=== PATIENT | male | born 1930 | race Caucasian/White ===

== ENCOUNTER 2018-10-06 17:16 | Inpatient (IN) | payer OTHER, MEDICARE ==
[~2018-10-06] VITALS: Ht 165.1 cm; Wt 73.2 kg
[2018-10-06] VITALS (7 sets, daily range): BP systolic 126–163; BP diastolic 50–70
--- NOTE | ~2018-10-06 | EKG ---
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
[~2018-10-06 17:16] MED LIST: ADALAT CC90 MG PO; ASPIRIN81 M1 PO; ATORVASTATIN CA40 M1 PO; CARVEDILOL12.5 MG PO; GLUCOSAMINE1000 MG PO; HYDROCHLOROTHIA25 M1 PO; IMDUR SA30 MG PO; LANTUS100 U/ML SC; LASIX20 MG PO; LIPITOR80 MG PO; LISINOPRIL40 MG PO; METFORMIN500 MG PO; NIFEDIPINE90 MG PO; NITROSTAT0.4 MG SL; PLAVIX75 M1 PO; SAW PALMETTO80 M1 PO; SYNTHROID25 MCG PO; TEMOVATE0.05% T; TENORMIN25 M1 PO; ZESTRIL20 MG PO
[2018-10-06 17:58] LABS: BASO # 0.1 10*3/uL (0.0-0.1); BASO % 0.6 % (0.0-1.0); EOS # 0.2 10*3/uL (0.0-0.4); EOS % 1.7 % (1.0-4.0); HEMATOCRIT 33.5 % (42.0-52.0); LYMPH # 1.3 10*3/uL (1.3-4.4); LYMPH % 12.9 % (27.0-41.0); MEAN CELL VOLUME 91.5 fl (80.0-94.0); MEAN CORPUSCULAR HGB 30.1 pg (27.0-31.0); MEAN CORPUSCULAR HGB CONC 32.8 g/dl (33.0-37.0); MEAN PLATELET VOLUME 11.9 fl (9.6-12.3); MONO # 0.8 10*3/uL (0.1-1.0); MONO % 7.4 % (3.0-9.0); NEUT # 7.9 10*3/uL (2.3-7.9); NEUT % 77.1 % (47.0-73.0); PLATELET COUNT AUTOMATED 249 10*3/uL (130-400); RED BLOOD COUNT 3.66 10*6/uL (4.50-5.90); RED CELL DISTRI WIDTH 14.2 % (0-14.5); WHITE BLOOD COUNT 10.2 10*3/uL (4.8-10.8)
[2018-10-06 18:33] LABS: ACT PARTIAL THROMBO TIME 26.3 SECONDS (20.8-31.5); INTERNATIONAL NORM RATIO 1.1 (2.0-3.5)
[2018-10-06 18:50] LABS: ALBUMIN 3.4 gm/dl (3.1-4.5); CREATININE 1.69 mg/dL (0.70-1.30); POTASSIUM 5.3 mmol/L (3.5-5.1); TOTAL PROTEIN 7.1 gm/dL (6.4-8.2)
[2018-10-06 18:51] LABS: TROPONIN I 0.027 ng/ml (<0.045)
[2018-10-06] MEDS ORDERED: LASIX20 MG PO (21:01)
[2018-10-06] MEDS ORDERED: AMLODIPINE BESY10 MG PO (21:02)
[2018-10-06] MEDS ORDERED: LANTUS SOL100 UNIT/1 SC (21:03)
[2018-10-07 06:34] LABS: BASO # 0.1 10*3/uL (0.0-0.1); BASO % 0.7 % (0.0-1.0); EOS # 0.2 10*3/uL (0.0-0.4); EOS % 2.6 % (1.0-4.0); HEMATOCRIT 30.8 % (42.0-52.0); HEMOGLOBIN 9.8 g/dl (14.0-18.0); LYMPH # 1.5 10*3/uL (1.3-4.4); LYMPH % 20.4 % (27.0-41.0); MEAN CELL VOLUME 91.7 fl (80.0-94.0); MEAN CORPUSCULAR HGB 29.2 pg (27.0-31.0); MEAN CORPUSCULAR HGB CONC 31.8 g/dl (33.0-37.0); MEAN PLATELET VOLUME 11.6 fl (9.6-12.3); MONO # 0.7 10*3/uL (0.1-1.0); MONO % 9.9 % (3.0-9.0); NEUT # 4.8 10*3/uL (2.3-7.9); NEUT % 66.3 % (47.0-73.0); PLATELET COUNT AUTOMATED 188 10*3/uL (130-400); RED BLOOD COUNT 3.36 10*6/uL (4.50-5.90); RED CELL DISTRI WIDTH 14.3 % (0-14.5); WHITE BLOOD COUNT 7.2 10*3/uL (4.8-10.8)
[2018-10-07 06:46] LABS: CREATININE 1.6 mg/dL (0.70-1.30); PHOSPHOROUS 4.5 mg/dL (2.5-4.9); TOTAL PROTEIN 6.3 gm/dL (6.4-8.2)
[2018-10-07 06:53] LABS: THYROID STIM HORMONE (HS) 4.27 uIU/ml (0.358-4.75)
[2018-10-07 06:55] LABS: POTASSIUM 4.3 mmol/L (3.5-5.1)
[2018-10-07 07:45] LABS: VITAMIN D, 25-HYDROXY 29.7 ng/mL (30-100)
[2018-10-07 08:00] VITALS: BP 130/50
[2018-10-07 11:35] LABS: BILIRUBIN NEGATIVE (NEGATIVE); BLOOD 1+ (NEGATIVE); CLARITY SL CLOUDY (CLEAR); COLOR YELLOW (YELLOW); GLUCOSE NEGATIVE (NEGATIVE); KETONE NEGATIVE (NEGATIVE); LEUKO ESTERASE NEGATIVE (NEGATIVE); NITRITE NEGATIVE (NEGATIVE); UROBILINOGEN 0.2 E.U./dl (0.2-1.0)
[2018-10-07 11:45] LABS: BACTERIA TRACE; EPITHELIAL CELLS 0-2; MUCOUS 1+; RBC 16-20 rbc/hpf (0-2)
[2018-10-07 12:00] VITALS: BP 132/56
[2018-10-07 16:00] VITALS: BP 139/42
[2018-10-07 20:00] VITALS: BP 145/49
[2018-10-08] VITALS: BP 123/41
[2018-10-08 06:13] LABS: BASO # 0.1 10*3/uL (0.0-0.1); BASO % 0.9 % (0.0-1.0); EOS # 0.2 10*3/uL (0.0-0.4); EOS % 2.3 % (1.0-4.0); HEMATOCRIT 32.1 % (42.0-52.0); HEMOGLOBIN 10.2 g/dl (14.0-18.0); LYMPH # 1.5 10*3/uL (1.3-4.4); LYMPH % 22.1 % (27.0-41.0); MEAN CELL VOLUME 90.9 fl (80.0-94.0); MEAN CORPUSCULAR HGB 28.9 pg (27.0-31.0); MEAN CORPUSCULAR HGB CONC 31.8 g/dl (33.0-37.0); MONO # 0.7 10*3/uL (0.1-1.0); MONO % 9.9 % (3.0-9.0); NEUT # 4.5 10*3/uL (2.3-7.9); NEUT % 64.7 % (47.0-73.0); PLATELET COUNT AUTOMATED 186 10*3/uL (130-400); RED BLOOD COUNT 3.53 10*6/uL (4.50-5.90); RED CELL DISTRI WIDTH 13.9 % (0-14.5); WHITE BLOOD COUNT 6.9 10*3/uL (4.8-10.8)
[2018-10-08 06:30] LABS: CREATININE 1.62 mg/dL (0.70-1.30); PHOSPHOROUS 4.3 mg/dL (2.5-4.9); POTASSIUM 3.9 mmol/L (3.5-5.1)
[2018-10-08 08:00] VITALS: BP 150/52
[2018-10-08 12:00] VITALS: BP 124/58
[2018-10-08 16:00] VITALS: BP 140/54
[2018-10-08 20:00] VITALS: BP 138/57
[2018-10-09] VITALS: BP 132/46
[2018-10-09 06:28] LABS: BASO # 0.1 10*3/uL (0.0-0.1); BASO % 0.7 % (0.0-1.0); EOS # 0.1 10*3/uL (0.0-0.4); EOS % 1.9 % (1.0-4.0); HEMATOCRIT 32.2 % (42.0-52.0); HEMOGLOBIN 10.2 g/dl (14.0-18.0); LYMPH # 1.4 10*3/uL (1.3-4.4); LYMPH % 20.4 % (27.0-41.0); MEAN CELL VOLUME 90.7 fl (80.0-94.0); MEAN CORPUSCULAR HGB 28.7 pg (27.0-31.0); MEAN CORPUSCULAR HGB CONC 31.7 g/dl (33.0-37.0); MEAN PLATELET VOLUME 12.1 fl (9.6-12.3); MONO # 0.7 10*3/uL (0.1-1.0); NEUT # 4.6 10*3/uL (2.3-7.9); NEUT % 66.7 % (47.0-73.0); PLATELET COUNT AUTOMATED 186 10*3/uL (130-400); RED BLOOD COUNT 3.55 10*6/uL (4.50-5.90); RED CELL DISTRI WIDTH 13.8 % (0-14.5); WHITE BLOOD COUNT 6.8 10*3/uL (4.8-10.8)
[2018-10-09 07:03] LABS: CREATININE 1.59 mg/dL (0.70-1.30); POTASSIUM 3.8 mmol/L (3.5-5.1)
[2018-10-09 08:00] VITALS: BP 136/62
[2018-10-09] MEDS ORDERED: LASIX40 MG PO (10:42)
== END 2018-10-09 12:08 | disposition home health service (06) | DRG 291 ==
LOC: ED 17:16 → EDHOLD 18:55 → 4E 18:55
PROVIDERS: Emergency Medicine; Family Medicine; Internal Medicine
DX: I13.0 Hypertensive heart and chronic kidney disease with heart failure and stage 1 through stage 4 chronic kidney disease, or unspecified chronic kidney disease (principal); I50.43 Acute on chronic combined systolic (congestive) and diastolic (congestive) heart failure; E44.0 Moderate protein-calorie malnutrition; R00.1 Bradycardia, unspecified; E11.65 Type 2 diabetes mellitus with hyperglycemia; N18.3 Chronic kidney disease, stage 3 (moderate); E87.5 Hyperkalemia; I25.10 Atherosclerotic heart disease of native coronary artery without angina pectoris; E78.5 Hyperlipidemia, unspecified; E03.9 Hypothyroidism, unspecified; E11.22 Type 2 diabetes mellitus with diabetic chronic kidney disease; D64.9 Anemia, unspecified; E55.9 Vitamin D deficiency, unspecified; R74.8 Abnormal levels of other serum enzymes; R31.9 Hematuria, unspecified; Z66 Do not resuscitate; Z51.5 Encounter for palliative care; I27.22 Pulmonary hypertension due to left heart disease; Z88.1 Allergy status to other antibiotic agents; Z79.899 Other long term (current) drug therapy; Z79.82 Long term (current) use of aspirin; Z79.4 Long term (current) use of insulin; Z95.5 Presence of coronary angioplasty implant and graft; Z83.3 Family history of diabetes mellitus; Z82.5 Family history of asthma and other chronic lower respiratory diseases; Z68.26 Body mass index [BMI] 26.0-26.9, adult

== ENCOUNTER 2019-01-24 12:44 | Inpatient (IN) | payer OTHER, MEDICARE ==
[~2019-01-24] VITALS: Ht 165.1 cm; Wt 69.5 kg
--- NOTE | ~2019-01-24 | EKG ---
[place], [place] ELECTROCARDIOGRAM REPORT NAME: KENDALL ESPINOZA UNIT #: [id number] ROOM: 520 DOCTOR: KATHARINE DRAFT REPORT BIRTHDATE: [birth year] [facility] Test Date: 2019-01-24 Test Time: 12:56:12 Pat Name: KENDALL ESPINOZA Department: Room: 520 Gender: M Manager Balance: Melina Ervin : 1930 Requested By: TALIA KNAPP Order Number: [id number] Reading MD: Anita Quiñones MD Measurements Intervals [place] Rate: 62 P: 66 [place]: 147 QRS: -49 QRSD: 126 T: QT: 499 QTc: 507 Interpretive Statements Sinus rhythm Nonspecific IVCD with LAD low voltage precordial leads Nonspecific T abnormalities, lateral leads Compared to ECG 10/06/2018 18:02:08 Intraventricular conduction delay now present T-wave abnormality now present Junctional rhythm no longer present Myocardial infarct finding no longer present Electronically Signed On 01-28-2019 3:46:10 PDT by Anita Quiñones MD CM:EKGRPT:ELECTROCARDIOGRAM REPORT [id number] TALIA BONILLA DRAFT REPORT TALIA KNAPP DO
[~2019-01-24 12:44] MED LIST changes: +AMLODIPINE BESY10 MG PO; +LANTUS SOL100 UNIT/1 SC; +LASIX40 MG PO
[2019-01-24 12:46] VITALS: BP 119/56
[2019-01-24 13:04] LABS: BASO # 0.1 10*3/uL (0.0-0.1); BASO % 0.6 % (0.0-1.0); EOS # 0.2 10*3/uL (0.0-0.4); EOS % 1.7 % (1.0-4.0); HEMATOCRIT 38.3 % (42.0-52.0); HEMOGLOBIN 12.5 g/dl (14.0-18.0); LYMPH # 1.6 10*3/uL (1.3-4.4); MEAN CELL VOLUME 89.7 fl (80.0-94.0); MEAN CORPUSCULAR HGB 29.3 pg (27.0-31.0); MEAN CORPUSCULAR HGB CONC 32.6 g/dl (33.0-37.0); MEAN PLATELET VOLUME 11.9 fl (9.6-12.3); MONO # 0.8 10*3/uL (0.1-1.0); MONO % 7.8 % (3.0-9.0); NEUT # 7.2 10*3/uL (2.3-7.9); NEUT % 73.6 % (47.0-73.0); PLATELET COUNT AUTOMATED 186 10*3/uL (130-400); RED BLOOD COUNT 4.27 10*6/uL (4.50-5.90); RED CELL DISTRI WIDTH 14.3 % (0-14.5); WHITE BLOOD COUNT 9.8 10*3/uL (4.8-10.8)
[2019-01-24 13:10] VITALS: BP 137/53
[2019-01-24 13:13] LABS: ACT PARTIAL THROMBO TIME 26.1 SECONDS (20.8-31.5); INTERNATIONAL NORM RATIO 1.1 (2.0-3.5)
[2019-01-24 13:24] LABS: ALBUMIN 3.7 gm/dl (3.1-4.5); CREATININE 1.68 mg/dL (0.70-1.30); POTASSIUM 3.9 mmol/L (3.5-5.1); TROPONIN I 0.03 ng/ml (<0.045)
[2019-01-24 15:00] VITALS: BP 150/78
--- NOTE | 2019-01-24 15:00 | NUR ---
A 88, admitted to , under the services of AARON Gray DO with a diagnosis of ACUTE HEART FAILURE. Chief complaint is CHF. Patient arrived via wheel chair from ER. Monitor applied. Initial assessment completed. Vital signs taken and recorded. AARON RGAY DO notified of admission to the unit. Orders received. See assessment for past medical history, medications and allergies. Patient and/or family oriented to unit. [facility] visitation policy reviewed. Clothing/patient valuable form completed. VERONICA CARRILLO
--- NOTE | 2019-01-24 16:44 | NUR ---
CONSULT CALLED TO DR GABRIEL ANSWERING SERVICE.
[2019-01-24 20:00] VITALS: BP 143/58
--- NOTE | 2019-01-24 20:00 | NUR ---
PT MED REC UPDATED PER IN PHARMACY PAPERWORK THAT IS FAXED TO HOSPITAL. DR. LARA AWARE.
[2019-01-25] VITALS: BP 141/58
[2019-01-25 07:21] LABS: ALBUMIN 3.3 gm/dl (3.1-4.5); CREATININE 1.68 mg/dL (0.70-1.30); PHOSPHOROUS 4.4 mg/dL (2.5-4.9); POTASSIUM 3.8 mmol/L (3.5-5.1); TOTAL PROTEIN 7.1 gm/dL (6.4-8.2)
[2019-01-25 07:24] LABS: BASO # 0.1 10*3/uL (0.0-0.1); BASO % 0.9 % (0.0-1.0); EOS # 0.1 10*3/uL (0.0-0.4); EOS % 1.8 % (1.0-4.0); HEMATOCRIT 35.4 % (42.0-52.0); HEMOGLOBIN 11.5 g/dl (14.0-18.0); LYMPH # 1.7 10*3/uL (1.3-4.4); LYMPH % 25.7 % (27.0-41.0); MEAN CELL VOLUME 89.8 fl (80.0-94.0); MEAN CORPUSCULAR HGB 29.2 pg (27.0-31.0); MEAN CORPUSCULAR HGB CONC 32.5 g/dl (33.0-37.0); MEAN PLATELET VOLUME 12.8 fl (9.6-12.3); MONO # 0.7 10*3/uL (0.1-1.0); MONO % 10.1 % (3.0-9.0); NEUT # 4.1 10*3/uL (2.3-7.9); NEUT % 60.9 % (47.0-73.0); PLATELET COUNT AUTOMATED 173 10*3/uL (130-400); RED BLOOD COUNT 3.94 10*6/uL (4.50-5.90); RED CELL DISTRI WIDTH 14.1 % (0-14.5); WHITE BLOOD COUNT 6.7 10*3/uL (4.8-10.8)
[2019-01-25 07:27] LABS: FREE T4 1.34 ng/dl (0.76-1.46); THYROID STIM HORMONE (HS) 3.78 uIU/ml (0.358-4.75)
[2019-01-25 07:57] LABS: VITAMIN D, 25-HYDROXY 31.4 ng/mL (30-100)
[2019-01-25 08:00] VITALS: BP 144/50
--- NOTE | 2019-01-25 10:00 | NUR ---
PT AWAKE. ROUTINE MEDICATIONS WELL TOLERATED. NO PT QUESTIONS/CONCERNS AT THIS TIME
[2019-01-25 12:00] VITALS: BP 141/56
--- NOTE | 2019-01-25 13:49 | NUR ---
24 HR CHART CHECK COMPLETE
[2019-01-25 16:00] VITALS: BP 148/53
[2019-01-25 20:00] VITALS: BP 130/55
[2019-01-26] VITALS: BP 138/59
[2019-01-26 06:47] LABS: CREATININE 1.67 mg/dL (0.70-1.30)
--- NOTE | 2019-01-26 08:15 | NUR ---
24 HR CHART CHECK COMPLETE
[2019-01-26 08:32] VITALS: BP 120/52
[2019-01-26 12:00] VITALS: BP 132/80
[2019-01-26 16:00] VITALS: BP 156/60
[2019-01-26 20:00] VITALS: BP 139/51
[2019-01-27] VITALS: BP 131/54
[2019-01-27 06:54] LABS: BASO # 0.1 10*3/uL (0.0-0.1); BASO % 0.8 % (0.0-1.0); EOS # 0.1 10*3/uL (0.0-0.4); EOS % 2.1 % (1.0-4.0); HEMATOCRIT 35.5 % (42.0-52.0); HEMOGLOBIN 11.7 g/dl (14.0-18.0); LYMPH # 1.6 10*3/uL (1.3-4.4); LYMPH % 24.5 % (27.0-41.0); MEAN CELL VOLUME 90.1 fl (80.0-94.0); MEAN CORPUSCULAR HGB 29.7 pg (27.0-31.0); MEAN PLATELET VOLUME 11.2 fl (9.6-12.3); MONO # 0.6 10*3/uL (0.1-1.0); MONO % 10.1 % (3.0-9.0); NEUT # 3.9 10*3/uL (2.3-7.9); NEUT % 62.3 % (47.0-73.0); PLATELET COUNT AUTOMATED 167 10*3/uL (130-400); RED BLOOD COUNT 3.94 10*6/uL (4.50-5.90); RED CELL DISTRI WIDTH 14.1 % (0-14.5); WHITE BLOOD COUNT 6.3 10*3/uL (4.8-10.8)
[2019-01-27 07:18] LABS: CREATININE 1.7 mg/dL (0.70-1.30); POTASSIUM 4.1 mmol/L (3.5-5.1)
[2019-01-27 08:10] VITALS: BP 140/72
--- NOTE | 2019-01-27 09:00 | NUR ---
Certified Ski Patroller in to talk to patient. Patient states lives at home with his . There are basement steps in the home. Physician: Dr. Juanito Rucker [place]acy: [place] Home health services: none Patient's level of ADLs: INDEPENDENT Patient has working utilities: yes DME: none Follow-up physician's appointment after d/c: will be made by the hospitalist nurse director upon discharge Does patient want to access PORTAL?: no Discharge plan discussed with patient and his who is sitting at the bedside. He lives at home with his . He is independent in his ADLs and ambulation. Discussed home health care services and he denies any home needs at this time. When medically stable he will be discharged to home. YVETTE DUCKWORTH
[2019-01-27] MEDS ORDERED: ALDACTONE25 MG PO (11:31)
[2019-01-27 12:00] VITALS: BP 135/53
--- NOTE | 2019-01-27 13:12 | NUR ---
Discharge instructions reviewed with patient/family. Patient receptive and verbalizes understanding. Follow-up care arranged. Written instructions given to patient/family. PATIENT TO BE ASSESSED FOR HOME O2 PRIOR TO LEAVING; NEW ORDER PER HOSPITALISTS. ROCÍO DELGADILLO
--- NOTE | 2019-01-27 15:35 | NUR ---
[facility]
--- NOTE | 2019-01-27 15:45 | NUR ---
Ambulated patient down the hallway on room air and he maintained his SpO2 93%. Tolerated well, no signs of SOB or distress.
--- NOTE | 2019-01-27 16:29 | NUR ---
PATIENT DISCHARGED TO FRONT LOBBY, ACCOMPANIED BY [facility], FOR TRANSPORT HOME BY PRIVATE VEHICLE WITH .
--- NOTE | 2019-01-28 11:47 | NUR ---
[facility] of [facility]
[2019-02-05] MEDS ORDERED: COREG6.25 MG PO (09:43)
== END 2019-01-27 16:29 | disposition home or self-care (01) | DRG 291 ==
LOC: ED 12:44 → 5E 14:09 → EDHOLD 14:09 → 5E 14:46
PROVIDERS: Emergency Medicine; Internal Medicine; Registered Nurse; ADMIT Internal Medicine
DX: I13.0 Hypertensive heart and chronic kidney disease with heart failure and stage 1 through stage 4 chronic kidney disease, or unspecified chronic kidney disease (principal); I50.43 Acute on chronic combined systolic (congestive) and diastolic (congestive) heart failure; E44.0 Moderate protein-calorie malnutrition; N18.3 Chronic kidney disease, stage 3 (moderate); E83.41 Hypermagnesemia; D64.9 Anemia, unspecified; E78.2 Mixed hyperlipidemia; R74.8 Abnormal levels of other serum enzymes; I08.1 Rheumatic disorders of both mitral and tricuspid valves; I27.20 Pulmonary hypertension, unspecified; E11.22 Type 2 diabetes mellitus with diabetic chronic kidney disease; I25.10 Atherosclerotic heart disease of native coronary artery without angina pectoris; E11.65 Type 2 diabetes mellitus with hyperglycemia; E03.9 Hypothyroidism, unspecified; Z95.5 Presence of coronary angioplasty implant and graft; Z83.3 Family history of diabetes mellitus; Z82.5 Family history of asthma and other chronic lower respiratory diseases; Z88.1 Allergy status to other antibiotic agents; Z79.82 Long term (current) use of aspirin; Z79.4 Long term (current) use of insulin; Z79.899 Other long term (current) drug therapy; Z68.25 Body mass index [BMI] 25.0-25.9, adult

== ENCOUNTER 2019-02-07 10:36 | Emergency (ER) | payer OTHER ==
[~2019-02-07] VITALS: Ht 165.1 cm; Wt 69.9 kg
--- NOTE | ~2019-02-07 | EKG ---
[place], [place] ELECTROCARDIOGRAM REPORT NAME: KENDALL ESPINOZA UNIT #: [id number] ROOM: DOCTOR: EPIPHANY DRAFT REPORT BIRTHDATE: [birth year] [facility] Test Date: 2019-02-07 Test Time: 10:42:22 Pat Name: KENDALL ESPINOZA Department: Room: Gender: Head Of Art: : 1930 Requested By: REGI ARNETT Order Number: [id number] Reading MD: Gabriel Gipson MD Measurements Intervals [place] Rate: 58 P: -88 [place]: 123 QRS: -44 QRSD: 110 T: -60 QT: 521 QTc: 512 Interpretive Statements Ectopic atrial rhythm Left axis deviation Abnormal R-wave progression, late transition Borderline repolarization abnormality Prolonged QT interval Compared to ECG 02/03/2019 17:57:31 Ectopic atrial rhythm now present Left-axis deviation now present Sinus rhythm no longer present Left anterior fascicular block no longer present Myocardial infarct finding no longer present Electronically Signed On 02-10-2019 8:53:50 PDT by Gabriel Gipson MD CM:EKGRPT:ELECTROCARDIOGRAM REPORT [id number] REGI ARNETT MD EPIPHANY DRAFT REPORT REGI ARNETT MD
--- NOTE | ~2019-02-07 | EKG ---
[place], [place] ELECTROCARDIOGRAM REPORT NAME: KENDALL ESPINOZA UNIT #: [id number] ROOM: DOCTOR: EPIPHANY DRAFT REPORT BIRTHDATE: [birth year] [facility] Test Date: 2019-02-07 Test Time: 13:50:39 Pat Name: KENDALL ESPINOZA Department: Room: Gender: Otr Flatbed Driver: Michell Galvan : 1930 Requested By: REGI ARNETT Order Number: [id number] Reading MD: Gabriel Gipson MD Measurements Intervals [place] Rate: 56 P: 84 [place]: 150 QRS: -45 QRSD: 97 T: 207 QT: 541 QTc: 523 Interpretive Statements Sinus rhythm Ventricular premature complex Abnormal R-wave progression, late transition Inferior infarct, old Lateral leads are also involved Prolonged QT interval Compared to ECG 02/03/2019 17:57:31 Ventricular premature complex(es) now present 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
--- NOTE | ~2019-02-07 | EKG ---
[place], [place] ELECTROCARDIOGRAM REPORT NAME: KENDALL ESPINOZA UNIT #: [id number] ROOM: DOCTOR: EPIPHANY DRAFT REPORT BIRTHDATE: [birth year] [facility] Test Date: 2019-02-07 Test Time: 17:25:45 Pat Name: KENDALL ESPINOZA Department: Room: Gender: Hvac Installation Technician: Marilee Mcgill : 1930 Requested By: REGI ARNETT Order Number: [id number] Reading MD: Giorgi Wiseman MD Measurements Intervals [place] Rate: 66 P: 74 [place]: 153 QRS: -47 QRSD: 100 T: -62 QT: 481 QTc: 505 Interpretive Statements Sinus rhythm Abnormal R-wave progression, late transition Inferior infarct, age indeterminate Abnormal lateral Q waves Prolonged QT interval Compared to ECG 02/03/2019 17:57:31 Q waves now present Left anterior fascicular block no longer present Myocardial infarct finding still present Electronically Signed On 02-10-2019 10:02:23 PDT by Giorgi Wiseman MD CM:EKGRPT:ELECTROCARDIOGRAM REPORT [id number] REGI ALCANTAR DRAFT REPORT REGI ARNETT MD
[~2019-02-07 10:36] MED LIST changes: +ALDACTONE25 MG PO; +COREG6.25 MG PO
[2019-02-07 10:56] LABS: BASO % 0.6 % (0.0-1.0); EOS # 0.1 10*3/uL (0.0-0.4); EOS % 1.7 % (1.0-4.0); HEMATOCRIT 34.1 % (42.0-52.0); HEMOGLOBIN 10.9 g/dl (14.0-18.0); LYMPH # 1.1 10*3/uL (1.3-4.4); LYMPH % 16.4 % (27.0-41.0); MEAN CELL VOLUME 91.4 fl (80.0-94.0); MEAN CORPUSCULAR HGB 29.2 pg (27.0-31.0); MEAN PLATELET VOLUME 11.7 fl (9.6-12.3); MONO # 0.6 10*3/uL (0.1-1.0); MONO % 8.5 % (3.0-9.0); NEUT # 4.8 10*3/uL (2.3-7.9); NEUT % 72.5 % (47.0-73.0); PLATELET COUNT AUTOMATED 157 10*3/uL (130-400); RED BLOOD COUNT 3.73 10*6/uL (4.50-5.90); WHITE BLOOD COUNT 6.6 10*3/uL (4.8-10.8)
[2019-02-07 11:11] LABS: ALBUMIN 3.3 gm/dl (3.1-4.5); CREATININE 1.61 mg/dL (0.70-1.30); POTASSIUM 4.6 mmol/L (3.5-5.1); TROPONIN I 0.027 ng/ml (<0.045)
[2019-02-07 11:12] LABS: ACT PARTIAL THROMBO TIME 24.8 SECONDS (20.8-31.5)
== END 2019-02-07 18:28 | disposition short-term general hospital (02) ==
LOC: ED 10:36
PROVIDERS: Emergency Medicine
DX: R55 Syncope and collapse (principal); R00.1 Bradycardia, unspecified; I25.10 Atherosclerotic heart disease of native coronary artery without angina pectoris; E78.5 Hyperlipidemia, unspecified; E03.9 Hypothyroidism, unspecified; I13.0 Hypertensive heart and chronic kidney disease with heart failure and stage 1 through stage 4 chronic kidney disease, or unspecified chronic kidney disease; E11.22 Type 2 diabetes mellitus with diabetic chronic kidney disease; N18.3 Chronic kidney disease, stage 3 (moderate); I50.9 Heart failure, unspecified; Z79.4 Long term (current) use of insulin; Z79.899 Other long term (current) drug therapy; Z79.82 Long term (current) use of aspirin; Z88.1 Allergy status to other antibiotic agents

== ENCOUNTER 2019-07-30 22:49 | Emergency (ER) | payer OTHER ==
[~2019-07-30] VITALS: Ht 165.1 cm; Wt 58.1 kg
[2019-07-31] MEDS ORDERED: CEPHALEXIN500 M1 PO (01:09)
[2019-07-31] MEDS ORDERED: ANTIBIOTIC28.4 GM T (01:09)
== END 2019-07-31 02:04 | disposition home or self-care (01) ==
LOC: ED 22:49
DX: S61.210A Laceration without foreign body of right index finger without damage to nail, initial encounter (principal); I25.10 Atherosclerotic heart disease of native coronary artery without angina pectoris; E11.9 Type 2 diabetes mellitus without complications; I50.9 Heart failure, unspecified; I25.2 Old myocardial infarction; E78.5 Hyperlipidemia, unspecified; E07.9 Disorder of thyroid, unspecified; Z88.1 Allergy status to other antibiotic agents; Z79.899 Other long term (current) drug therapy; Z79.4 Long term (current) use of insulin; Z79.82 Long term (current) use of aspirin; Z95.1 Presence of aortocoronary bypass graft; W29.8XXA Contact with other powered hand tools and household machinery, initial encounter; Y93.89 Activity, other specified; Y92.89 Other specified places as the place of occurrence of the external cause; Y99.8 Other external cause status

== ENCOUNTER 2021-10-04 16:26 | Inpatient (IN) | payer MEDICARE ==
[~2021-10-04] VITALS: Ht 165.1 cm; Wt 64.2 kg
[~2021-10-04 16:26] MED LIST changes: +ANTIBIOTIC28.4 GM T; +CEPHALEXIN500 M1 PO
[2021-10-04 16:31] VITALS: BP 132/68
[2021-10-04 17:31] VITALS: BP 125/71
[2021-10-04 19:03] LABS: BASO % 0.4 % (0.0-1.0); HEMATOCRIT 44.7 % (42.0-52.0); LYMPH # 0.7 10*3/uL (1.3-4.4); LYMPH % 13.3 % (27.0-41.0); MEAN CELL VOLUME 94.3 fl (80.0-94.0); MEAN CORPUSCULAR HGB 30.4 pg (27.0-31.0); MEAN CORPUSCULAR HGB CONC 32.2 g/dl (33.0-37.0); MEAN PLATELET VOLUME 12.9 fl (9.6-12.3); MONO # 0.7 10*3/uL (0.1-1.0); MONO % 11.9 % (3.0-9.0); NEUT % 73.7 % (47.0-73.0); PLATELET COUNT AUTOMATED 118 10*3/uL (130-400); RED BLOOD COUNT 4.74 10*6/uL (4.50-5.90); RED CELL DISTRI WIDTH 15.5 % (0-14.5); WHITE BLOOD COUNT 5.5 10*3/uL (4.8-10.8)
[2021-10-04 19:19] LABS: ALBUMIN 2.9 gm/dl (3.1-4.5); CREATININE 2.45 mg/dL (0.70-1.30); POTASSIUM 4.2 mmol/L (3.5-5.1); TOTAL PROTEIN 7.7 gm/dL (6.4-8.2)
[2021-10-05 03:45] VITALS: BP 147/71
[2021-10-05 06:15] LABS: BASO % 0.4 % (0.0-1.0); HEMATOCRIT 43.7 % (42.0-52.0); LYMPH # 1.1 10*3/uL (1.3-4.4); LYMPH % 21.3 % (27.0-41.0); MEAN CELL VOLUME 96.3 fl (80.0-94.0); MEAN CORPUSCULAR HGB 30.2 pg (27.0-31.0); MEAN CORPUSCULAR HGB CONC 31.4 g/dl (33.0-37.0); MONO # 0.6 10*3/uL (0.1-1.0); MONO % 10.7 % (3.0-9.0); NEUT # 3.6 10*3/uL (2.3-7.9); PLATELET COUNT AUTOMATED 119 10*3/uL (130-400); RED BLOOD COUNT 4.54 10*6/uL (4.50-5.90); RED CELL DISTRI WIDTH 15.9 % (0-14.5); WHITE BLOOD COUNT 5.4 10*3/uL (4.8-10.8)
[2021-10-05 06:16] LABS: ALBUMIN 2.6 gm/dl (3.1-4.5); CREATININE 2.24 mg/dL (0.70-1.30); TOTAL PROTEIN 7.2 gm/dL (6.4-8.2)
[2021-10-05 06:22] LABS: THYROID STIM HORMONE (HS) 1.71 uIU/ml (0.358-4.75)
[2021-10-05 07:30] VITALS: BP 132/70
[2021-10-05 08:17] LABS: FERRITIN 241.8 ng/mL (22.0-322.0)
[2021-10-05 17:38] VITALS: BP 122/62
[2021-10-05 19:28] VITALS: BP 131/66
[2021-10-06 06:19] LABS: BASO % 0.2 % (0.0-1.0); HEMATOCRIT 39.5 % (42.0-52.0); LYMPH # 0.5 10*3/uL (1.3-4.4); LYMPH % 8.8 % (27.0-41.0); MEAN CELL VOLUME 94.7 fl (80.0-94.0); MEAN CORPUSCULAR HGB 30.2 pg (27.0-31.0); MEAN CORPUSCULAR HGB CONC 31.9 g/dl (33.0-37.0); MONO # 0.2 10*3/uL (0.1-1.0); MONO % 3.8 % (3.0-9.0); NEUT # 5.3 10*3/uL (2.3-7.9); NEUT % 86.7 % (47.0-73.0); PLATELET COUNT AUTOMATED 92 10*3/uL (130-400); RED BLOOD COUNT 4.17 10*6/uL (4.50-5.90); RED CELL DISTRI WIDTH 15.6 % (0-14.5); WHITE BLOOD COUNT 6.1 10*3/uL (4.8-10.8)
[2021-10-06 06:42] LABS: CREATININE 1.8 mg/dL (0.70-1.30); POTASSIUM 3.8 mmol/L (3.5-5.1)
[2021-10-06 06:51] VITALS: BP 118/60
[2021-10-06 07:34] VITALS: BP 118/60
[2021-10-06 12:00] VITALS: BP 122/52
[2021-10-06 16:00] VITALS: BP 88/50
[2021-10-06 20:00] VITALS: BP 91/51
[2021-10-07] VITALS: BP 104/53
[2021-10-07 07:07] LABS: ALBUMIN 2.1 gm/dl (3.1-4.5); POTASSIUM 3.8 mmol/L (3.5-5.1)
[2021-10-07 07:26] LABS: CREATININE 1.73 mg/dL (0.70-1.30); TOTAL PROTEIN 6.2 gm/dL (6.4-8.2)
[2021-10-07 08:00] VITALS: BP 108/70
[2021-10-07 08:30] LABS: HEMATOCRIT 38.1 % (42.0-52.0); MEAN CELL VOLUME 93.2 fl (80.0-94.0); MEAN CORPUSCULAR HGB 30.6 pg (27.0-31.0); MEAN CORPUSCULAR HGB CONC 32.8 g/dl (33.0-37.0); MEAN PLATELET VOLUME 13.9 fl (9.6-12.3); PLATELET COUNT AUTOMATED 103 10*3/uL (130-400); RED BLOOD COUNT 4.09 10*6/uL (4.50-5.90); RED CELL DISTRI WIDTH 15.3 % (0-14.5); WHITE BLOOD COUNT 13.4 10*3/uL (4.8-10.8)
[2021-10-07 09:19] LABS: BURR CELLS MODERATE; PLATELET SUFFICIENCY LOW (NORMAL); TOTAL CELLS COUNTED 100 #CELLS
[2021-10-07] MEDS ORDERED: Humalog SQ (09:47)
== END 2021-10-07 13:13 | DRG 177 ==
LOC: ED 16:26 → EDHOLD 18:31 → 4E 18:31 → EDHOLD 20:45 → 4E 10-06 07:56
PROVIDERS: Family Medicine; Internal Medicine; Student in an Organized Health Care Education/Training Program; ADMIT Family Medicine; ATTEND Family Medicine
DX: U07.1 COVID-19 (principal); N17.0 Acute kidney failure with tubular necrosis; E44.0 Moderate protein-calorie malnutrition; N18.9 Chronic kidney disease, unspecified; W19.XXXA Unspecified fall, initial encounter; D53.9 Nutritional anemia, unspecified; E11.22 Type 2 diabetes mellitus with diabetic chronic kidney disease; J11.1 Influenza due to unidentified influenza virus with other respiratory manifestations; E80.6 Other disorders of bilirubin metabolism; S60.221A Contusion of right hand, initial encounter; E83.52 Hypercalcemia; Z68.23 Body mass index [BMI] 23.0-23.9, adult; Y93.89 Activity, other specified; Y92.89 Other specified places as the place of occurrence of the external cause; Y99.8 Other external cause status; Z95.1 Presence of aortocoronary bypass graft; Z95.5 Presence of coronary angioplasty implant and graft; Z83.3 Family history of diabetes mellitus; Z82.49 Family history of ischemic heart disease and other diseases of the circulatory system; Z88.1 Allergy status to other antibiotic agents; Z79.82 Long term (current) use of aspirin; Z79.899 Other long term (current) drug therapy